=== PATIENT | male | born 1940 | race Caucasian/White ===

== ENCOUNTER → 2017-12-15 08:32 | Outpatient (POV) | payer MEDICARE, SELFPAY | PROVIDERS: Visit Provider Physician Assistant | DX: Z00.00 Encounter for general adult medical examination without abnormal findings (principal) ==

== ENCOUNTER → 2018-08-14 08:33 | Outpatient (CLI) | payer MEDICARE, SELFPAY ==
--- NOTE | 2018-08-14 08:41 | XR_ITS ---
XR shoulder RT min 2V, XR shoulder LT min 2V Ordering Physician: Doreen Paris MD Patient Age: 77 years: Male HISTORY: ITS.REASON: ap, scapular-y auxillary views TECHNIQUE: Right shoulder: 3 views: transaxillary view, Y view, AP internal rotation. Left shoulder:3 views transaxillary view, Y view, AP internal rotation. : COMPARISON Right shoulder from 01/09/2016 used as comparison for the right shoulder. Left shoulder uses a chest film from February 2017. ===== RIGHT SHOULDER 3 VIEWS Prominent Arthritic changes throughout the right shoulder. Narrowing at the glenohumeral joint with marginal osteophytes about the humeral head and to lesser degree glenoid from such. There is some dystrophic calcification along the region of the biceps tendon and greater tuberosity. The additional calcification here. Hypertrophic changes along with possibly some calcific tendinitis and soft tissue calcification. Significant superior migration of the humeral head such that it appears to articulate with the inferior acromion.- This reflects underlying rotator cuff tear & rotator cuff demise. Generous AC joint arthropathy and hypertrophy also noted. These features were seen before but have shown slight progression since 2016 Right clavicle is intact. Upper right ribs unremarkable. [place] right lung clear. IMPRESSION. Advanced arthritic changes right shoulder with rotator cuff tear. ===== LEFT SHOULDER 3 views Prominent arthritic changes at the left shoulder also evident. Narrowing and arthritic changes at the glenohumeral joint with hypertrophic ridging about the posterior margin of the glenoid as well as about the base of the humeral head. There is superior migration of the humeral head reflecting underlying rotator cuff tear. The humeral head articulates with the inferior acromion. There is fragmentation of the acromion and some dystrophic soft tissue calcification and possible calcific tendinitis overlying the humeral head . 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 AC joint arthropathy. Left upper lung and ribs stable with apical pleural thickening unchanged. Scapula unremarkable. IMPRESSION Advanced arthritic changes at left shoulder.... With rotator cuff tear.
== END ==
PROVIDERS: PCP Family Medicine; Visit Provider Orthopaedic Surgery
DX: M25.511 Pain in right shoulder (principal); M25.512 Pain in left shoulder
CPT/HCPCS: 73030

== ENCOUNTER → 2019-12-20 11:01 | Outpatient (CLI) | payer MEDICARE, SELFPAY ==
[2019-12-20 13:11] LABS: Coronavirus 19 IgG Antibody Negative (Negative); Coronavirus 19 IgM Antibody Negative (Negative)
== END ==
PROVIDERS: Visit Provider Ophthalmology
DX: Z03.818 Encounter for observation for suspected exposure to other biological agents ruled out (principal)
CPT/HCPCS: 36415; 86328

== ENCOUNTER 2019-12-21 06:30 | Day surgery (SDC) | payer MEDICARE, SELFPAY ==
[2019-12-16 13:38] VITALS: BMI 23.6
[2019-12-21] VITALS (7 sets, daily range): BP systolic 122–175; BP diastolic 71–83; PULSE 58–65; RESP 18–20; TEMP 36.4; O2SAT 92–100
== END 2019-12-21 08:28 | disposition home or self-care (01) ==
LOC: OR 06:32
PROVIDERS: PCP Family Medicine; Visit Provider Ophthalmology
DX: H25.813 Combined forms of age-related cataract, bilateral (principal); H53.8 Other visual disturbances; H53.149 Visual discomfort, unspecified; Z79.82 Long term (current) use of aspirin; Z79.899 Other long term (current) drug therapy; Z96.652 Presence of left artificial knee joint
CPT/HCPCS: 66984; V2632

== ENCOUNTER → 2020-01-03 10:48 | Outpatient (CLI) | payer MEDICARE, SELFPAY ==
[2020-01-03 12:12] LABS: Coronavirus 19 IgG Antibody Negative (Negative); Coronavirus 19 IgM Antibody Negative (Negative)
== END ==
PROVIDERS: Visit Provider Ophthalmology
DX: Z01.818 Encounter for other preprocedural examination (principal)
CPT/HCPCS: 36415; 86328

== ENCOUNTER 2020-01-04 07:26 | Day surgery (SDC) | payer MEDICARE, SELFPAY ==
[2019-12-29 11:07] VITALS: BMI 23.6
[2020-01-04 08:00] VITALS: BP 182/87; PULSE 74; RESP 18; TEMP 36.3; O2SAT 95
[2020-01-04 08:55] VITALS: BP 166/99; PULSE 72; RESP 18; O2SAT 100
[2020-01-04 09:00] VITALS: BP 160/82; PULSE 71; RESP 18; O2SAT 100
[2020-01-04 09:05] VITALS: BP 156/79; PULSE 66; RESP 16; O2SAT 100
[2020-01-04 09:10] VITALS: BP 155/89; PULSE 64; RESP 16; O2SAT 100
[2020-01-04 09:15] VITALS: BP 156/97; PULSE 65; RESP 18; TEMP 36.6; O2SAT 95
== END 2020-01-04 09:36 | disposition home or self-care (01) ==
LOC: OR 07:27
PROVIDERS: PCP Family Medicine; Visit Provider Ophthalmology
PROC: (CPT 66984; principal; 2020-01-04 09:00)
DX: H25.813 Combined forms of age-related cataract, bilateral (principal); H53.149 Visual discomfort, unspecified; M19.90 Unspecified osteoarthritis, unspecified site; Z85.46 Personal history of malignant neoplasm of prostate; Z96.652 Presence of left artificial knee joint; Z79.82 Long term (current) use of aspirin; Z79.899 Other long term (current) drug therapy
CPT/HCPCS: 66984; V2632

== ENCOUNTER → 2020-03-30 08:35 | Outpatient (CLI) | payer MEDICARE, SELFPAY ==
--- NOTE | 2020-03-30 08:45 | XR_ITS ---
PROCEDURE: XR FOOT WT BEARING LT 3V CLINICAL INDICATION: pain COMPARISON: CR FTL3 FOOT-LT-3 VIEWS from 09/14/2013 FINDINGS: Hallux valgus with osteoarthritis of the 1st MTP joint and bunion formation at the distal aspect of the 1st metatarsal. There is mild lateral translation of the proximal phalanx of approximately 4 mm. There osteoarthritic changes of the midfoot. Severe vascular calcifications are present. Other findings:No acute fracture or dislocation. IMPRESSION: Hallux valgus with osteoarthritis of the 1st MTP joint and bunion formation at the distal aspect of the 1st metatarsal.. Mild osteoarthritis with vascular calcification Dictated by: Maynor Singh MD 03/30/2020 17:41 Maynor Singh MD in [place] 03/30/2020 17:41
--- NOTE | 2020-03-30 08:45 | XR_ITS ---
PROCEDURE: XR FOOT WT BEARING RT 3V CLINICAL INDICATION: pain COMPARISON: CR FTL3 FOOT-LT-3 VIEWS from 09/14/2013 FINDINGS: Hallux valgus with osteoarthritis of the 1st MTP joint and bunion formation at the distal aspect of the 1st metatarsal. Prominent bony hypertrophy is present at the distal aspect of the 1st metatarsal. The hallux sesamoid is displaced laterally. Osteoarthritic changes are present at the talonavicular and navicular cuneiform and tarsal metatarsal junction with mild pes planus. There is significant vascular calcification. Other findings:None. IMPRESSION: Hallux valgus with osteoarthritis of the 1st MTP joint and bunion formation at the distal aspect of the 1st metatarsal with osteoarthritic changes and pes planus. Dictated by: Maynor Singh MD 03/30/2020 17:39 Maynor Singh MD in [place] 03/30/2020 17:39
== END ==
PROVIDERS: PCP Family Medicine; Visit Provider Podiatrist
DX: M79.673 Pain in unspecified foot (principal)
CPT/HCPCS: 73630

== ENCOUNTER → 2020-03-30 10:32 | Outpatient (CLI) | payer MEDICARE, SELFPAY ==
[2020-03-30 11:50] LABS: Basophils % 0.2 % (0.1-2.0); Eosinophils # 0.1 K/mm3 (0.0-0.4); Eosinophils % 1.3 % (0.1-12.0); Hematocrit 46.5 % (42.0-52.0); Hemoglobin 14.8 g/dL (14.1-18.0); Lymphocytes # 1.3 K/mm3 (0.7-4.5); Lymphocytes % 13.6 % (10-50); Mean Corpuscular HGB Conc 31.9 g/dL (31.8-35.4); Mean Corpuscular Hemoglobin 33.6 pg (27.0-31.2); Mean Corpuscular Volume 105.3 fl (80-94); Mean Platelet Volume 7.5 fl (7.4-10.4); Monocytes # 0.6 K/mm3 (0.1-1.0); Monocytes % 6.5 % (1.7-9.3); Neutrophils # 7.4 K/mm3 (1.8-7.8); Neutrophils % 78.3 % (37.0-80.0); Platelet Count 218 K/mm3 (142-424); Red Blood Count 4.41 M/mm3 (4.60-6.20); Red Cell Distribution Width 14.4 % (11.5-17.5); White Blood Count 9.4 K/mm3 (4.8-10.8)
[2020-03-30 11:56] LABS: Chloride 102 mmol/L (98-107); Potassium 4.2 mmoL/L (3.5-5.1); Sodium 136 mmol/L (136-145)
[2020-03-30 11:59] LABS: Alanine Aminotransferase 24 U/L (12-78); Albumin Level 3.9 g/dl (3.5-5.0); Albumin/Globulin Ratio 1.7 (1.1-1.8); Alkaline Phosphatase 71 U/L (38-126); Anion Gap 8.2 mEq/L (5-15); Aspartate Amino Transferase 25 U/L (17-59); Bilirubin,Total 0.8 mg/dl (0.2-1.3); Blood Urea Nitrogen 28 mg/dl (9-20); Carbon Dioxide 30 mmol/L (22.0-30.0); Estimated Glomerular Filt Rate 82 ml/min (>60); GFR (African American) 99 ML/MIN (>60); Globulin 2.3 g/dL (1.3-3.2); Total Protein,Serum 6.2 g/dl (6.3-8.2)
[2020-03-30 12:00] LABS: Calcium 9.1 mg/dl (8.4-10.2); Glucose 78 mg/dl (74-100)
[2020-03-30 12:05] LABS: C-Reactive Protein 2.1 mg/L (0-4)
[2020-03-30 12:43] LABS: Erythrocyte Sedimentation Rate 16 mm/hr (0-20)
== END ==
PROVIDERS: Visit Provider Podiatrist
DX: I73.9 Peripheral vascular disease, unspecified (principal); L03.031 Cellulitis of right toe; L97.519 Non-pressure chronic ulcer of other part of right foot with unspecified severity; M79.673 Pain in unspecified foot; S91.109A Unspecified open wound of unspecified toe(s) without damage to nail, initial encounter; L97.509 Non-pressure chronic ulcer of other part of unspecified foot with unspecified severity
CPT/HCPCS: 36415; 73630; 80053; 85025; 85651; 86140; 87070; 87077; 87186; 87205

== ENCOUNTER → 2020-03-31 10:51 | Outpatient (CLI) | payer MEDICARE, SELFPAY ==
--- NOTE | 2020-03-31 10:51 | US_ITS ---
APPROVED REPORT Exam Type: Lower Extremity Segmental Pressures Mainframe Applications Developer: Debra Muro RVT Indications Claudication: Bilaterally Non-healing Ulcer: Right History of Smoking DECREASED PULSES, NON-HEALING WOUND RT 2ND TOE Risk Factors CAD Cardiac Disease History of Smoking Pressures/Indices Right Indices Left Indices Brachial 157.00 mmHg Brachial 162.00 mmHg Low Thigh 199.00 mmHg 1.23 Low Thigh 255.00 mmHg 0.00 Calf 255.00 mmHg 0.00 Calf 255.00 mmHg 0.00 Ankle(PT) 255.00 mmHg 0.00 Ankle(PT) 255.00 mmHg 0.00 Ankle(DP) 255.00 mmHg 0.00 Ankle(DP) 255.00 mmHg 0.00 Digit 95.00 mmHg 0.59 Digit 135.00 mmHg 0.83 Findings RT DARRIUS:NON-COMPRESSIBLE LT DARRIUS:NON-COMPRESSIBLE RT TBI:0.59 LT TBI:0.83 DAMPENED WAVEFORMS BILATERAL ANKLE DECREASED PULSES BILATERAL Conclusion RT DARRIUS:NON-COMPRESSIBLE LT DARRIUS:NON-COMPRESSIBLE RT TBI:0.59 LT TBI:0.83 DAMPENED WAVEFORMS BILATERAL ANKLE DECREASED PULSES BILATERAL Moderate right and mild left arterial disease Electronically signed by : Maynor Singh MD 03/31/2020 17:37:29
== END ==
PROVIDERS: PCP Family Medicine; Visit Provider Podiatrist
DX: R09.89 Other specified symptoms and signs involving the circulatory and respiratory systems (principal)
CPT/HCPCS: 93923

== ENCOUNTER 2020-04-05 14:45 | Outpatient (RCR) | payer MEDICARE, SELFPAY | END 2020-04-05 14:50 | disposition home or self-care (01) | LOC: PT 14:45 | PROVIDERS: PCP Family Medicine; Visit Provider Podiatrist | DX: L97.511 Non-pressure chronic ulcer of other part of right foot limited to breakdown of skin (principal) | CPT/HCPCS: 97161; 97597 ==

== ENCOUNTER → 2020-04-13 08:27 | Outpatient (CLI) | payer MEDICARE, SELFPAY ==
[2020-04-13 11:10] LABS: Coronavirus 19 IgG Antibody Negative (Negative); Coronavirus 19 IgM Antibody Negative (Negative)
== END ==
PROVIDERS: Visit Provider Internal Medicine Gastroenterology
DX: Z51.89 Encounter for other specified aftercare (principal); Z01.818 Encounter for other preprocedural examination; Z03.818 Encounter for observation for suspected exposure to other biological agents ruled out; Z12.11 Encounter for screening for malignant neoplasm of colon; L97.513 Non-pressure chronic ulcer of other part of right foot with necrosis of muscle
CPT/HCPCS: 86328; 87070; 87205

== ENCOUNTER 2020-04-14 07:34 | Day surgery (SDC) | payer MEDICARE, SELFPAY ==
[2020-04-11 09:52] VITALS: BMI 24.3
[2020-04-14] VITALS (7 sets, daily range): BP systolic 91–177; BP diastolic 58–97; PULSE 73–85; RESP 16–18; TEMP 36.4–36.6; O2SAT 16–100
--- NOTE | 2020-04-14 08:34 | HMH.PROC ---
[facility] Procedure Note Procedure Note:: Colonoscopy Procedure Report: Colonoscopy with cold snare polypectomy and APC ablation Endoscopist: Fidencio Flores II, MD Referring physician: Priti Leone M.D. Date of Procedure: April 14, 2020 Equipment: Olympus 180 variable stiffness pediatric colonoscope Sedation: MAC sedation Indication: Mr. Hernandez is a 79-year-old gentleman who is here for diagnostic colonoscopy secondary to rectal bleeding. This does occur frequently with blood in the toilet tissue and he did have one episode where blood filled the commode. This does occur more frequently when he is straining or has a little constipation. He reports no abdominal pain or rectal pain. He reports no change in bowel habits, weight loss or family history of colon cancer. His last colonoscopy 5 to 7 years ago revealed a couple of polyps which were removed. The patient did have prior prostate cancer treated with radiation therapy. Procedure: Prior to the procedure, a history and physical exam was performed, and patient's medications and allergies were reviewed. The risks, benefits and alternatives of the sedation and procedure were discussed with the patient. All questions were answered and informed consent was obtained. The patient was brought to the procedure room. Patient identification and proposed procedure were verified by the physician and the nurse. The patient was placed in a left lateral decubitus position and the scope was passed under direct vision. Throughout the procedure, the patient's blood pressure, pulse, and oxygen saturations were monitored continuously. The colonoscopy was accomplished without difficulty. The patient tolerated the procedure well. Findings: On digital rectal examination there was normal rectal tone. There were no external hemorrhoids. The colonoscope was introduced through the anal canal to the rectum and advanced to the cecum. The ileocecal valve and appendiceal orifice were identified. The scope was advanced a short distance into the ileum which appeared grossly normal. The scope was then withdrawn into the colon. The cecum and ascending colon were normal. There was a diminutive 3 to 4 mm polyp in the transverse colon removed via cold snare polypectomy. There were scattered diverticuli throughout the descending and sigmoid colon (LEFT colon). Within the distal rectum was telangiectasias/AVMs and evidence of radiation proctitis. This was deemed to be the cause of his rectal bleeding. The telangiectasias did encompass catheter circumference just proximal to the pectinate line. This area was ablated/coagulated using the APC (argon plasma hide stretcher hand). Upon retroflexion within the rectum there were also grade 1-2 internal hemorrhoids. The preparation was excellent throughout with [place] Preparation Score of 9. The cecal time was 12 minutes. Impression: 1. 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 Diminutive transverse colon polyp 3. Left-sided diverticulosis 4. Grade 1-2 internal hemorrhoids Plan: The patient's rectal bleeding is from the telangiectasias created by radiation therapy and he does have chronic radiation proctitis. The patient is not suffering from tenesmus or rectal pain. The treatment of choice for hemorrhoidal bleeding of radiation proctitis remains APC ablation. Sometimes mesalamine suppositories can be useful if this persists. Also, fibrosis created by band ligation can sometimes help. Antioxidants (vitamin E) have been utilized.
--- NOTE | 2020-04-14 08:57 | P.PN_ITS ---
[facility] Anesthesia Checklist - Patient Identification Patient Identification: Arm Band, Verbal (Name & ) - Structural Data Admitted From: Home Planned Operative Procedure/s: Colonoscopy Consent for Planned Operative Procedure(s) Verified: Yes Verified Documents: Surgical Consent, History and Physical - NPO Status Verified Time NPO: 00:00 - Chart Verification Results Verified: None - Additional verifications Anesthesia Reactions: No - Airway Assessment C-Spine Mobility Assessed: Yes TMJ Mobility Assessed: Yes Dentition: Edentulous - Neurological Assessment Level of Consciousness: Awake, Alert, Appropriate, Follows Commands Hx Seizures: No Numbness or tingling in extremities: No - Anesthesia Plan Anesthesia Risk discussed: Yes Anesthesia Plan: Verified ASA Class: III Anesthesia Type: MAC [facility] History I have reviewed the patient's past medical history: Yes Medical History: Reports:: Cancer, Coronary Artery Disease, Peripheral Artery Disease Denies:: Diabetes Mellitus Type 1, Diabetes Mellitus Type 2, Internal Pacemaker, MRSA, Seizures *Have you ever received a pneumonia vaccine?: Yes *Have you received a flu vaccine this season?: Yes Other Medical History: Reports: Arthritis, Other Anesthesia experience/problems:: None Laterality Cases: Left: Total Knee Replacement Other Surgeries: Yes: Appendectomy, CABG, Cancer Surgery, Hernia Repair, Other (open heart in 2002). No: Pacemaker Amputation: No Fractures: No - *Social History Last grade of school completed: 9th or 10th Smoking Status: Current every day smoker Tobacco Type: smokeless tobacco # Packs/Day (cigarettes): 1 Alcohol Intake: current Alcohol Intake Frequency:: a few times a week Substance Use Type: denies use *Occupational Status:: retired Housing: house *Travel in the last 8 weeks: None Family Hx:: Diabetes
== END 2020-04-14 09:51 | disposition home or self-care (01) ==
LOC: OUTP 07:35
PROVIDERS: PCP Family Medicine; Visit Provider Internal Medicine Gastroenterology
PROC: 0DJD8ZZ Inspection of Lower Intestinal Tract, Via Natural or Artificial Opening Endoscopic (ICD-10-PCS; CPT 45378; principal; 2020-04-14 08:30)
DX: K62.89 Other specified diseases of anus and rectum (principal); K62.7 Radiation proctitis; K64.0 First degree hemorrhoids; K57.30 Diverticulosis of large intestine without perforation or abscess without bleeding; K63.5 Polyp of colon; Z86.010 Personal history of colon polyps; Z85.46 Personal history of malignant neoplasm of prostate; I25.10 Atherosclerotic heart disease of native coronary artery without angina pectoris; I73.9 Peripheral vascular disease, unspecified; M19.90 Unspecified osteoarthritis, unspecified site; Z95.1 Presence of aortocoronary bypass graft; Z72.0 Tobacco use
CPT/HCPCS: 45385; 45388; 88305; C2618

== ENCOUNTER → 2020-04-15 10:22 | Outpatient (CLI) | payer MEDICARE, SELFPAY ==
[2020-04-15 11:12] LABS: Basophils % 0.1 % (0.1-2.0); Eosinophils % 0.1 % (0.1-12.0); Hematocrit 48.8 % (42.0-52.0); Lymphocytes # 0.9 K/mm3 (0.7-4.5); Lymphocytes % 7.9 % (10-50); Mean Corpuscular HGB Conc 32.8 g/dL (31.8-35.4); Mean Corpuscular Hemoglobin 34.5 pg (27.0-31.2); Mean Corpuscular Volume 105.1 fl (80-94); Mean Platelet Volume 7.7 fl (7.4-10.4); Monocytes # 0.8 K/mm3 (0.1-1.0); Monocytes % 7.3 % (1.7-9.3); Neutrophils # 9.8 K/mm3 (1.8-7.8); Neutrophils % 84.6 % (37.0-80.0); Platelet Count 205 K/mm3 (142-424); Red Blood Count 4.65 M/mm3 (4.60-6.20); Red Cell Distribution Width 14.7 % (11.5-17.5); White Blood Count 11.5 K/mm3 (4.8-10.8)
[2020-04-15 12:29] LABS: Chloride 99 mmol/L (98-107); Potassium 4.7 mmoL/L (3.5-5.1); Sodium 137 mmol/L (136-145)
[2020-04-15 12:32] LABS: Anion Gap 12.7 mEq/L (5-15); Blood Urea Nitrogen 42 mg/dl (9-20); Calcium 9.7 mg/dl (8.4-10.2); Carbon Dioxide 30 mmol/L (22.0-30.0); Estimated Glomerular Filt Rate 82 ml/min (>60); GFR (African American) 99 ML/MIN (>60); Glucose 92 mg/dl (74-100)
[2020-04-15 13:00] LABS: Coronavirus 19 IgG Antibody Negative (Negative); Coronavirus 19 IgM Antibody Negative (Negative)
== END ==
PROVIDERS: Visit Provider Internal Medicine
DX: Z01.818 Encounter for other preprocedural examination (principal); Z03.818 Encounter for observation for suspected exposure to other biological agents ruled out; I25.10 Atherosclerotic heart disease of native coronary artery without angina pectoris; I48.91 Unspecified atrial fibrillation
CPT/HCPCS: 36415; 80048; 85025; 86328

== ENCOUNTER 2020-04-17 08:05 | Day surgery (SDC) | payer MEDICARE, SELFPAY ==
[2020-04-17] VITALS (13 sets, daily range): BP systolic 133–172; BP diastolic 68–93; PULSE 48–68; RESP 12–18; TEMP 36.5; O2SAT 91–99; BMI 24.3
--- NOTE | 2020-04-17 07:36 | IR_ITS ---
APPROVED REPORT Patient Location: Outpatient [facility] Operator: ISA Calderon RT (R) PROCEDURES Right radial arterial access Catheter placement in the left common iliac artery Left common iliac artery antegrade angiogram with unilateral runoff to the left foot Catheter placement in the right external iliac artery Right external iliac artery antegrade angiogram with unilateral runoff to the right foot Catheter placed in the distal abdominal aorta Distal abdominal aortography with iliofemoral angiography INDICATION Jeane class V claudication, Abnormal DARRIUS 0.50.8, Peripheral artery disease Informed consent was obtained prior to the procedure. COMPLICATIONS NONE Estimated Blood Loss: LESS THAN 10 ML TECHNIQUE 1% lidocaine used to anesthetize the right anterior aspect of the right wrist. The right radial artery was accessed via the central technique and an arterial cocktail using 5000U heparin, 2.5 mg verapamil, 1mg lidocaine and 800mcg nitroglycerin into the right radial sheath intra-arterially. A PV multi curve catheter was then placed into the left common iliac artery via the right radial sheath and iliofemoral angiography was performed with unilateral runoff to the foot. The catheter was then pulled back and placed under fluoroscopic guidance into the right external iliac artery where unilateral runoff was performed. Following this the catheter was pulled back to the abdominal aorta and abdominal aortography with bilateral iliofemoral angiography was performed. At the end of the procedure the apparatus was removed the sheath was removed good hemostasis was achieved using TR banding patient was transferred to the postop holding area in stable condition. ANGIOGRAPHIC RESULTS Distal abdominal aorta has external calcification with no intraluminal stenosis The bilateral common internal and external iliac arteries are normal The bilateral common femoral arteries are normal The bilateral superficial femoral arteries are normal The bilateral profunda femoris arteries are normal There is extremely slow flow down both legs consistent with severe distal microscopic vasculopathy. The right popliteal artery is normal. The right anterior tibialis artery posterior tibialis artery and peroneal artery are both patent in the proximal and mid segment. Distally there is poor opacification with poor distal blanching from the small blood vessels The left popliteal artery is normal. There is opacification of the posterior tibialis artery and peroneal artery. The anterior tibialis artery is poorly opacified. There is extremely slow flow down the entire leg from the common iliac arteries bilaterally into the lower extremities. There is poor blanching of the small vessel vascularity IMPRESSION No evidence of macrovascular disease Angiographic evidence of microscopic diffuse vasculopathy accompanied by severely slow flow down the entire leg bilaterally Angiographic evidence of severe endothelial dysfunction PLAN 1. Xarelto 2.5 twice daily plus aspirin 81 mg daily 2. Recommend long-acting nitrates 3. LDL less than 55 4. Aggressive physical therapy to improve with claudication Electronically signed by : William Quinones, 04/17/2020 11:55:53
--- NOTE | 2020-04-17 08:11 | CA_ITS ---
APPROVED REPORT EXAM: Comprehensive 2D, Doppler, and color-flow Echocardiogram Cement Paver: Lizy Mccoy, RT(R) Ht: 5 ft 9 in Wt: 155lbs BSA: 1.85 BP: 139/81 mmHg Indications: afib, claudication, CABG, CAD, SOB 2D Dimensions LVOT 2.29 cm (M/F) 1.5-2.5 M-Mode Dimensions RVDd 2.21 cm (0.9-2.6) LA Diam 4.48 cm (1.9-4.0) LVDd 5.18 cm (3.5-5.7) Ao Diam 3.67 cm (2.0-3.7) LVDs 3.74 cm (3.5-5.7) IVSd 0.84 cm (0.6-1.1) PWd 0.84 cm (0.6-1.1) EF (Teich) 53.60% FS 27.80% EDV (Teich) 128.40 mL ESV (Teich) 59.60 mL Aortic Valve LVOT Max 52.00 (70-110 cm/s) LVOT VTI 11.39 cm AoV Peak Robert. 97.00 (50-130 cm/s) AO Peak GR. 3.80 mmHg AO Mean GR. 2.10 (<5 mmHg) AO VTI 20.31 (18-25 cm) PIEDAD (VTI) 2.31 (2.5-4.5 cm2) Left Ventricle Left atrium is mildly enlarged, left ventricle is normal size, mild concentric left ventricular hypertrophy, visually estimated ejection fraction 50% with no regional wall motion abnormality, endocardial surfaces are poorly visualized, diastolic parameters are inconclusive. Right Ventricle Right atrium and right ventricle are mildly enlarged with normal contractility. Aortic Valve Aortic valve is thickened and calcified leaflet chordae display good mobility, there is no aortic stenosis or aortic insufficiency. Mitral Valve Mitral valve is grossly normal, there is mild mitral regurgitation. Tricuspid Valve Tricuspid valve grossly normal, there is trace tricuspid regurgitation. Tricuspid regurgitation jet velocity is inadequate for calculation of the right ventricular systolic pressure. Pulmonic Valve Pulmonic valve is poorly visualized. Great Vessels Aortic root is normal size. Pericardium No significant pericardial effusion noted. Conclusion 1. Technically difficult study, endocardial surfaces are poorly visualized. Normal left ventricular size, visually estimated ejection fraction 55% with no regional wall motion abnormality. 2. Mild mitral and trace tricuspid regurgitation. 3. No significant pericardial effusion noted. 4. Thickened and calcified aortic valve without aortic stenosis or significant aortic insufficiency. Electronically signed by : Judd Mason, 04/18/2020 06:01:01
== END 2020-04-17 14:39 | disposition home or self-care (01) ==
LOC: CATHLAB 08:07
PROVIDERS: PCP Family Medicine; Visit Provider Internal Medicine
DX: I70.212 Atherosclerosis of native arteries of extremities with intermittent claudication, left leg (principal); I70.235 Atherosclerosis of native arteries of right leg with ulceration of other part of foot; L97.511 Non-pressure chronic ulcer of other part of right foot limited to breakdown of skin; I48.20 Chronic atrial fibrillation, unspecified; E78.5 Hyperlipidemia, unspecified; Z72.0 Tobacco use; I25.10 Atherosclerotic heart disease of native coronary artery without angina pectoris; Z79.01 Long term (current) use of anticoagulants; Z79.82 Long term (current) use of aspirin; Z79.899 Other long term (current) drug therapy
CPT/HCPCS: 36247; 75625; 75716; 93306; 99152; 99153; C1725; C1769; J1644; Q9966

== ENCOUNTER → 2020-05-02 12:05 | Outpatient (CLI) | payer MEDICARE, SELFPAY ==
--- NOTE | 2020-05-02 12:12 | XR_ITS ---
PROCEDURE: XR CHEST 2V CLINICAL HISTORY: HX OF HIGH BLOOD PRESSURE COMPARISON: CR CXR CHEST(2 VIEWS-NOT PORTABLE) from 03/18/2017 FINDINGS: There is mild cardiomegaly without failure. Patient has had a prior CABG. The lungs are clear without infiltrates, suspicious nodules, or pleural effusions. There are degenerative changes in both shoulders with severe subacromial stenosis. IMPRESSION: Cardiomegaly, prior CABG Dictated by: Maynor Singh MD 05/02/2020 17:23 Maynor Singh MD in [place] 05/02/2020 17:23
== END ==
PROVIDERS: PCP Family Medicine; Visit Provider Family Medicine
DX: Z00.00 Encounter for general adult medical examination without abnormal findings (principal); I10 Essential (primary) hypertension
CPT/HCPCS: 71046

== ENCOUNTER → 2020-05-03 13:27 | Outpatient (CLI) | payer MEDICARE, SELFPAY ==
[2020-05-03 14:17] LABS: Basophils % 0.5 % (0.1-2.0); Eosinophils # 0.1 K/mm3 (0.0-0.4); Eosinophils % 1.4 % (0.1-12.0); Hematocrit 48.9 % (42.0-52.0); Hemoglobin 16.3 g/dL (14.1-18.0); Lymphocytes # 1.5 K/mm3 (0.7-4.5); Lymphocytes % 24.1 % (10-50); Mean Corpuscular HGB Conc 33.2 g/dL (31.8-35.4); Mean Corpuscular Hemoglobin 34.5 pg (27.0-31.2); Mean Corpuscular Volume 103.7 fl (80-94); Mean Platelet Volume 7.9 fl (7.4-10.4); Monocytes # 0.4 K/mm3 (0.1-1.0); Monocytes % 5.6 % (1.7-9.3); Neutrophils # 4.4 K/mm3 (1.8-7.8); Neutrophils % 68.5 % (37.0-80.0); Platelet Count 197 K/mm3 (142-424); Red Blood Count 4.72 M/mm3 (4.60-6.20); Red Cell Distribution Width 14.4 % (11.5-17.5); White Blood Count 6.4 K/mm3 (4.8-10.8)
[2020-05-03 15:09] LABS: Blood Urea Nitrogen 32 mg/dl (9-20); Carbon Dioxide 33 mmol/L (22.0-30.0); Chloride 101 mmol/L (98-107); Estimated Glomerular Filt Rate 65 ml/min (>60); GFR (African American) 79 ML/MIN (>60); Glucose 87 mg/dl (74-100); Sodium 140 mmol/L (136-145)
[2020-05-03 15:13] LABS: Coronavirus 19 IgG Antibody Negative (Negative); Coronavirus 19 IgM Antibody Negative (Negative)
[2020-05-03 15:15] LABS: C-Reactive Protein 2.3 mg/L (0-4); Erythrocyte Sedimentation Rate 16 mm/hr (0-20)
== END ==
PROVIDERS: Visit Provider Podiatrist
DX: Z01.818 Encounter for other preprocedural examination (principal); Z03.818 Encounter for observation for suspected exposure to other biological agents ruled out; L97.513 Non-pressure chronic ulcer of other part of right foot with necrosis of muscle
CPT/HCPCS: 36415; 80048; 85025; 85651; 86140; 86328

== ENCOUNTER 2020-05-05 10:15 | Day surgery (SDC) | payer MEDICARE, SELFPAY ==
[2020-05-03 09:14] VITALS: BMI 23.6
[2020-05-05] VITALS (11 sets, daily range): BP systolic 93–156; BP diastolic 59–90; PULSE 65–82; RESP 18; TEMP 36.4–36.6; O2SAT 94–97
--- NOTE | 2020-05-05 13:16 | HMH.OPNOTE ---
Date of procedure: 05/05/20 Pre-op Diagnosis:: Right 2nd toe ulcer Right 2nd toe infection Post-op Diagnosis:: Same Procedure performed:: Right 2nd toe (partial) amputation Surgeon:: Pallavi Hernandez DPM Anesthesia: GETA, local (20cc 0.5% marcaine plain) Estimated blood loss (mL): 5 Clinical Note:: Patient is a 79-year-old male with a right second toe ulceration secondary to elongated toenail puncturing the skin which resulted with infection. We discussed conservative versus surgical treatment options. Conservative treatment options include local wound care, oral and IV antibiotics, change in shoe wear, taping/padding, and off-loading. Discussed that patient would benefit from a wider and deeper shoe wear to accommodate the deformity. We discussed surgical intervention for amputation of the right 2nd toe. We discussed recurrence of callus and ulcer due to the elongated second toe and potential underlying bone infection. Patient understands that there is a chance that the toes can migrate to fill the gap or the foot may change shape after surgery. Patient also understands that they could have wound healing complications including delayed healing and infection. We discussed that if the wound does not heal, it is possible that they may need a more proximal amputation and could result in further loss of digits, loss of partial foot or loss of leg. We discussed the risks and benefits in great detail. Other surgical risks include: prolonged pain and swelling, further infection requiring oral or IV antibiotics, delay in healing of soft tissue or bone, nerve or blood vessel damage, CRPS/RSD, DVT, anesthesia complications, and even . All questions answered. Patient verbalized understanding. Consent obtained. PCP-Dr. Leone granted medical clearance. Pre-op labs: ESR, CRP, CBC, CMP, EKG, CXR, covid. Operative findings:: The right second toe had a distal callus measuring less than 0.5 x 0.5 x 0.4 cm that probe to bone. Minimal edema and erythema noted. The distal phalanx bone was soft and crumbly. Operative note:: On this date and time patient was deemed an appropriate surgical candidate. With informed consent signed, the patient was taken to the operating theater. The patient was positioned supine. LMA anesthesia was induced. No tourniquet used. Pre-op right second toe block given with 10 cc 0.5% marcaine plain. Right 2nd digit (partial) amputation: The right lower extremity was prepped and drapped in normal sterile fashion. A fish mouth incision was mapped out around the DIPJ. Utilizing a 15 blade dissection was carried down sharply to the level of the bone around the distal phalanx which was disarticulated from the medial phalanx. The distal phalanx bone was soft and crumbly and had a no malodor to it. Portion of it was cut and sent for bone culture and the other part was sent for bone biopsy for pathology. Attention was then directed to the middle phalanx. The head was hard and intact, with no obvious discoloration or cortical erosions noted. Next bacitracin irrigation was used to flush the wound. The wound was reexplored and no further signs of infection noted. Bleeding controlled. No vessels ligated with electrocautery or tied as there was minimal to no blood loss. 3-0 Prolene was used to close skin in an interrupted simple suture fashion. 10cc 0.5% marcaine plain given at end of case. The wounds were cleansed. Xeroform, dry sterile dressing was then applied to the foot. The patient was awoken from anesthesia and transferred to recovery with vital signs stable and neurovascular status intact. Materials: 3-0 Prolene Discharge/Plan: Patient is to maintain dressing clean dry and intact. Partial weight bearing to the right lower extremity in short fracture boot with walker. Completed oral antibiotics. IV Invanz given today. Hold on more antibiotics until cultures and path result. Obtain post op films, right foot, 3 views. Follow up in one week for dressing
--- NOTE | 2020-05-05 13:19 | P.PN_ITS ---
[facility] Anesthesia Checklist - Patient Identification Patient Identification: Arm Band, Verbal (Name & ) - Structural Data Admitted From: Home Planned Operative Procedure/s: toe amp Consent for Planned Operative Procedure(s) Verified: Yes Verified Documents: History and Physical - NPO Status Verified Time NPO: 00:00 - Chart Verification Results Verified: CBC, BMP - Additional verifications Patient : No Anesthesia Reactions: No Hx Blood Transfusions: No Blood Transfusion Reaction: No Cephalosporin Allergy: No Previous Colonoscopy: No - Cardiovascular Assessment Heart Sounds: S1 & S2 Pulse Strength: Baseline Pulse Rhythm: Irregular Peripheral Edema: No - Airway Assessment C-Spine Mobility Assessed: Yes TMJ Mobility Assessed: Yes Dentition: Edentulous - Neurological Assessment Level of Consciousness: Awake, Alert, Appropriate Hx Seizures: No Numbness or tingling in extremities: No - Anesthesia Plan Anesthesia Risk discussed: Yes Anesthesia Plan: Verified ASA Class: III Anesthesia Type: MAC [facility] History I have reviewed the patient's past medical history: Yes Medical History: Reports:: Cancer (PROSTATE), Coronary Artery Disease, Peripheral Artery Disease Denies:: Diabetes Mellitus Type 1, Diabetes Mellitus Type 2, Internal Pacemaker, MRSA, Seizures *Have you ever received a pneumonia vaccine?: Yes *Have you received a flu vaccine this season?: Yes Other Medical History: Reports: Arthritis, Other. Denies: Blood Transfusion Reaction Anesthesia experience/problems:: none Laterality Cases: Bilateral: Total Knee Replacement Other Surgeries: Yes: Angiogram, Appendectomy, CABG, Cancer Surgery, Cardiac Catheterization, Hernia Repair, Other (open heart in 2002). No: Pacemaker Amputation: No Fractures: No - *Social History Last grade of school completed: 9th or 10th Smoking Status: Unknown if ever smoked Tobacco Type: smokeless tobacco # Packs/Day (cigarettes): 1 Alcohol Intake: current Alcohol Intake Frequency:: holidays/special occasions only Substance Use Type: denies use *Occupational Status:: retired Housing: house *Travel in the last 8 weeks: None Family Hx:: Diabetes
--- NOTE | 2020-05-05 13:20 | P.PN_ITS ---
[facility] Anesthesia Record Part I Intake, IV Amount: 400 Estimated blood loss (mL): 0 Urine output (mL): 0 Blood Products used (#): none Blood Pressure: 93/63 SaO2: 97 Pulse Rate: 65 Respiratory Rate: 18 Temperature: 97.5 F Patient is:: Drowsy, Stable Stable to PACU at:: 13:14
--- NOTE | 2020-05-05 13:30 | XR_ITS ---
PROCEDURE: XR FOOT RT MIN 3V CLINICAL INDICATION: Right toe amp Pain COMPARISON: CR FTL3 FOOT-LT-3 VIEWS from 09/14/2013 CR XR FOOT WT BEARING RT 3V from 03/30/2020 CR XR FOOT WT BEARING LT 3V from 03/30/2020 FINDINGS: Hallux valgus with osteoarthritis of the 1st MTP joint and bunion formation at the distal aspect of the 1st metatarsal. The sesamoid to the 1st metatarsal is displaced laterally. Status post amputation at the distal phalanx of the 2nd toe. There is diffuse vascular calcification IMPRESSION: Status post amputation at distal phalanx of the 2nd toe otherwise no acute finding. Dictated by: Maynor Singh MD 05/05/2020 15:56 Maynor Singh MD in [facility] 05/05/2020 15:56
== END 2020-05-05 14:30 | disposition home or self-care (01) ==
LOC: OR 10:17
PROVIDERS: PCP Family Medicine; Visit Provider Podiatrist
PROC: (CPT 28810; principal; 2020-05-05 11:45)
DX: L97.513 Non-pressure chronic ulcer of other part of right foot with necrosis of muscle (principal); I73.9 Peripheral vascular disease, unspecified; F17.200 Nicotine dependence, unspecified, uncomplicated; M21.372 Foot drop, left foot; M19.071 Primary osteoarthritis, right ankle and foot; I48.20 Chronic atrial fibrillation, unspecified; I25.10 Atherosclerotic heart disease of native coronary artery without angina pectoris; E78.49 Other hyperlipidemia; L08.9 Local infection of the skin and subcutaneous tissue, unspecified; Z79.01 Long term (current) use of anticoagulants; Z95.1 Presence of aortocoronary bypass graft; Z96.652 Presence of left artificial knee joint; Z79.82 Long term (current) use of aspirin; Z79.899 Other long term (current) drug therapy
CPT/HCPCS: 28810; 73630; 87070; 87205; 88305; 88311; 96374; J1335; J2405

== ENCOUNTER 2020-06-04 17:48 | Observation (INO) | payer MEDICARE, SELFPAY ==
[2020-06-04] VITALS (8 sets, daily range): BP systolic 105–173; BP diastolic 57–101; PULSE 82–97; RESP 14–18; TEMP 36.4–37.1; O2SAT 90–98; BMI 23.6; BMI 25.8
--- NOTE | 2020-06-04 17:51 | HMH.EDGENADL ---
ED Disposition Clinical Impression: Fecal impaction in rectum Disposition: Admitted As Inpatient Condition on Discharge: Fair Referrals: Maximo Leone MD [Primary Care Provider] - - Critical Care Critical Care Time: No Attestation: On , the high probability of a clinically significant, sudden or life threatening deterioration of the following system(s) required my full and direct attention, intervention and personal management. The time I documented below is in addition to time spent performing reported procedures but includes the following listed in this critical care notation. Medical Decision Making - Medical Records Medical records reviewed: Yes: I reviewed the patient's medical records. - Franco Inquiry Pt receiving controlled substance: No Vital Signs: 06/04/20 17:53 06/04/20 18:50 Temperature 97.5 F L Temperature Source Oral Pulse Rate [Left Radial] 84 85 Respiratory Rate 18 Blood Pressure [Left Arm] 173/101 H 169/98 H Blood Pressure Mean [Left Arm] 125 121 Blood Pressure Source [Left Arm] Automatic Cuff Blood Pressure Position [Left Arm] Sitting 02 Sat by Pulse Oximetry 98 95 Oxygen Delivery Method Room Air - Lab Data Lab Results 06/04/20 19:23: Urine Color Yellow, Urine Appearance Clear, Urine pH 8.0, Ur Specific [place] 1.015, Urine Protein Negative, Urine Glucose (UA) Negative, Urine Ketones Trace, Urine Blood 2+, Urine Nitrate Negative, Urine Bilirubin Negative, Urine Urobilinogen 0.2, Ur Leukocyte Esterase Negative Orders (Tests/Meds): ED MEDICATIONS Generic Name Dose Route Start Last Admin Trade Name Freq PRN Reason Stop Dose Admin Senna/Docusate Sodium 1 tab 06/04/20 19:54 Sennosides 8.6mg/Docusate 50mg Tablet PO 07/04/20 19:53 BIDP PRN Constipation Discontinued Medications Generic Name Dose Route Start Last Admin Trade Name Freq PRN Reason Stop Dose Admin Magnesium Citrate 1 bot 06/04/20 19:55 Magnesium Citrate 10oz Bottle PO 06/04/20 19:56 ONCE ONE Sodium Phosphate 133 ml 06/04/20 19:38 06/04/20 19:39 Fleet 133ml Enema RC 06/04/20 19:39 133 ml ONCE ONE Administration ORDERS Category Date Time Status KUB (single view) [XR KUB] Stat Exams 06/04/20 19:51 Ordered CMP [Comprehensive Metabolic Panel] Stat Lab 06/04/20 19:53 Ordered Complete Blood Count Auto Diff Stat Lab 06/04/20 19:53 Ordered Urinalysis and Microscopic Stat Lab 06/04/20 19:23 Results Medical Decision Narrative: Patient presents to the emergency department with constipation. On examination, patient does have hard stool in a significant quantity located in his rectum. I do believe this could be causing his urination issues as this could compress the urethra. I did manually disimpact patient and soapsuds enema given. Patient now attempting to use bedside commode. Patient will be monitored to ensure relief of stool burden. Also be checked to ensure no difficulty urinating. Patient with very little success having bowel movement. At this time, I do not believe he is necessarily impacted as his stool is soft but again does have increased stool burden. KUB currently pending and basic labs ordered. At this time, catheter placed with 500 to 600 cc of urine. UA sent for analysis. Due to patient's continued struggle to have a bowel movement I do believe it is in his best interest to be placed on a bowel regimen so catheter can be removed and patient can void with ease. I did discuss this with on-call provider Dr. Sutherland and after careful discussion we agree. Patient will be admitted. Patient verbalized understanding and agrees with the plan. Assessment: Fecal impaction Disposition: admission General Adult HPI - General Stated complaint: pain from lower back down Time Seen by Provider: 06/04/20 18:15 - History of Present Illness HPI narrative: Patient 79-year-old male presenting with constipation. Patient states he has not had a bowel mo
--- NOTE | 2020-06-04 17:56 | ECG_ITS ---
APPROVED REPORT Exam: Resting ECG HR:88 bpm ECG Measurements Heart Rate 88 AXES QRSd 86 QRS 66 QT 370 T 22 QTc 447 Conclusion Atrial fibrillation late r wave progression Abnormal ECG Electronically signed by : Mason Trimble, 06/05/2020 06:54:03
--- NOTE | 2020-06-04 18:30 | PC.NURSE ---
soap suds enema administered per ER MD order. pt up to bsc after enema administration. Pt has call light within reach
--- NOTE | 2020-06-04 18:49 | PC.NURSE ---
Pt up to bedside commode, but unable to have any significant bowel movement.
--- NOTE | 2020-06-04 19:06 | PC.NURSE ---
report given to benoit casas and kvngrn
[2020-06-04 19:42] LABS: Microscopic, Urine URINE MICROSCOPIC (MICROSCOPIC)
[2020-06-04 19:47] LABS: Appearance,Urine CLEAR (Clear); Bilirubin,Urine Negative (Negative); Blood, Urine 2+ (Negative); Color,Urine YELLOW (Yellow); Glucose,Urine (UA) Negative (Negative); Ketones,Urine TRACE (Negative); Leukocyte Esterase,Urine Negative (Negative); Nitrate,Urine Negative (Negative); Protein,Urine Negative (Negative); Specific Gravity, Urine 1.015 (1.005-1.030); Urobilinogen,Urine 0.2 EU/dl (0.2)
--- NOTE | 2020-06-04 19:51 | XR_ITS ---
PROCEDURE: XR KUB CLINICAL INDICATION: constipation COMPARISON: CT ABDPELW CT ABD PELVIS W/ CONTRAST from 03/18/2017 FINDINGS: There is a mild amount of retained colonic feces in the rectal region. Prostate seed implants are noted in there is a Metz catheter present. No evidence of intestinal obstruction. Lumbar scoliosis convex right with degenerative changes in the lumbar spine and hips and with mild vascular calcification. IMPRESSION: As above, no acute finding. Mild amount of retained colonic feces in the rectal region. Dictated by: Maynor Singh MD 06/05/2020 05:29 Maynor Singh MD in [place] 06/05/2020 05:29
[2020-06-04 19:57] LABS: RBC,Urine 20-50 #/hpf (0-3)
[2020-06-04 20:23] LABS: Basophils % 0.2 % (0.1-2.0); Eosinophils # 0.1 K/mm3 (0.0-0.4); Hematocrit 48.1 % (42.0-52.0); Hemoglobin 15.6 g/dL (14.1-18.0); Lymphocytes % 9.5 % (10-50); Mean Corpuscular HGB Conc 32.4 g/dL (31.8-35.4); Mean Corpuscular Hemoglobin 33.9 pg (27.0-31.2); Mean Corpuscular Volume 104.7 fl (80-94); Mean Platelet Volume 7.5 fl (7.4-10.4); Monocytes # 0.6 K/mm3 (0.1-1.0); Monocytes % 5.2 % (1.7-9.3); Neutrophils # 9.2 K/mm3 (1.8-7.8); Neutrophils % 84.2 % (37.0-80.0); Platelet Count 197 K/mm3 (142-424); Red Blood Count 4.59 M/mm3 (4.60-6.20); Red Cell Distribution Width 13.8 % (11.5-17.5); White Blood Count 10.9 K/mm3 (4.8-10.8)
[2020-06-04 20:33] LABS: Chloride 101 mmol/L (98-107); Sodium 138 mmol/L (136-145)
[2020-06-04 20:34] LABS: Potassium 4.3 mmoL/L (3.5-5.1)
[2020-06-04 20:36] LABS: Alanine Aminotransferase 29 U/L (12-78); Alkaline Phosphatase 81 U/L (38-126); Anion Gap 8.3 mEq/L (5-15); Aspartate Amino Transferase 42 U/L (17-59); Blood Urea Nitrogen 22 mg/dl (9-20); Carbon Dioxide 33 mmol/L (22.0-30.0); Creatinine Clearance Estimated 64 mL/min (50-200); Estimated Glomerular Filt Rate 131 ml/min (>60); GFR (African American) 158 ML/MIN (>60)
[2020-06-04 20:37] LABS: Albumin Level 4.4 g/dl (3.5-5.0); Albumin/Globulin Ratio 1.7 (1.1-1.8); Globulin 2.6 g/dL (1.3-3.2); Glucose 103 mg/dl (74-100)
--- NOTE | 2020-06-04 23:31 | PC.NURSE ---
patient to the floor at this time.
--- NOTE | 2020-06-04 23:48 | PC.NURSE ---
PT ARRIVED TO FLOOR FROM ED WITH STAFF AT [phone]
[2020-06-05 03:47] VITALS: BP 125/75; PULSE 84; RESP 16; TEMP 36.6; O2SAT 97
--- NOTE | 2020-06-05 05:59 | PC.NURSE ---
shift summary pts lung sounds are clear with maintained above 90% on room air with a rate ranging from 16-18. pts bowels started to move around 0500. stool is loose and large in amount. pt is alert and oriented X4.
[2020-06-05 06:38] VITALS: BMI 29.8
--- NOTE | 2020-06-05 07:14 | HMH.HPDC ---
General - General Admission date:: 06/04/20 Discharge date: 06/05/20 *Admission Date: 06/04/20 *Chief complaint: Constipation and urinary hesitancy *History of present illness: 79-year-old male with history of prostate cancer successfully treated with brachytherapy with last PSA being less than 0.1 presented to the emergency department with constipation and inability to urinate. Patient reports periodic constipation at home for which he will use as needed cathartics. Urinary retention has not been a problem for the patient. Patient had a fecal impaction which was manually reduced in the emergency department but even after enema was unable to have further bowel movement. Disimpaction of the bowel did not result in urine flow and a Metz catheter was inserted which produced 5 to 600 mL of urine. Patient was admitted and given magnesium citrate. [facility] History I have reviewed the patient's past medical history: Yes Medical History: Reports:: Cancer (prostate cancer), Coronary Artery Disease, Myocardial Infarction (triple bypass), Peripheral Artery Disease Denies:: Diabetes Mellitus Type 1, Diabetes Mellitus Type 2, Internal Pacemaker, MRSA, Seizures *Have you ever received a pneumonia vaccine?: Yes *Have you received a flu vaccine this season?: Yes Other Medical History: Reports: Arthritis, Other. Denies: Blood Transfusion Reaction Other Surgeries: Yes: Angiogram, Appendectomy, CABG, Cancer Surgery, Cardiac Catheterization, Hernia Repair, Other (open heart in 2002). No: Pacemaker Amputation: No Fractures: No - *Social History Last grade of school completed: 9th or 10th Smoking Status: Never smoker Tobacco Type: smokeless tobacco # Packs/Day (cigarettes): 1 Alcohol Intake: current Alcohol Intake Frequency:: a few times a month Substance Use Type: denies use *Occupational Status:: retired Housing: house *Travel in the last 8 weeks: None Family Hx:: Diabetes Review of Systems - Constitutional Denies anorexia, Denies body ache(s), Denies chills, Denies fever(s), Denies lack of energy, Denies malaise - *Cardiovascular Denies chest pain, Denies chest pain at rest - *Respiratory Denies change in phlegm color, Denies chest congestion - *Gastrointestinal Reports constipation, Reports cramping, Denies abdominal pain, Denies belching - *Genitourinary Reports difficulty urinating - *Musculoskeletal Denies abnormal walking, Denies joint pain, Denies decreased muscle mass - *Neurologic Reports abnormal walking Exam Vital signs and Labs for Last 24 Hours: Temp Pulse Resp BP Pulse Ox 97.9 F 84 16 125/75 97 06/05/20 03:47 06/05/20 03:47 06/05/20 03:47 06/05/20 03:47 06/05/20 03:47 Laboratory Results - last 24 hr 06/04/20 19:23: Urine Color Yellow, Urine Appearance Clear, Urine pH 8.0, Ur Specific [place] 1.015, Urine Protein Negative, Urine Glucose (UA) Negative, Urine Ketones Trace, Urine Blood 2+, Urine Nitrate Negative, Urine Bilirubin Negative, Urine Urobilinogen 0.2, Ur Leukocyte Esterase Negative, Urine RBC 20-50, Urine WBC 10-20 06/04/20 20:10: WBC 10.9 H, RBC 4.59 L, Hgb 15.6, Hct 48.1, MCV 104.7 H, MCH 33.9 H, MCHC 32.4, RDW 13.8, Plt Count 197, MPV 7.5, Neut % (Auto) 84.2 H, Lymph % (Auto) 9.5 L, [place] % (Auto) 5.2, Eos % (Auto) 1.0, Baso % (Auto) 0.2, Neut # (Auto) 9.2 H, Lymph # (Auto) 1.0, [place] # (Auto) 0.6, Eos # (Auto) 0.1, Baso # (Auto) 0.0 06/04/20 20:10: Sodium 138, Potassium 4.3, Chloride 101, Carbon Dioxide 33 H, Anion Gap 8.3, BUN 22 H, Creatinine 0.60 L, Estimated Creat Clear 64, Estimated GFR 131, Est GFR ( Amer) 158, Glucose 103 H, Calcium 10.0, Total Bilirubin 1.0, AST 42, ALT 29, Alkaline Phosphatase 81, Total Protein 7.0, Albumin 4.4, Globulin 2.6, Albumin/Globulin Ratio 1.7 I & O for Last 24 hours: Intake & Output 06/02/20 06/03/20 06/04/20 06/05/20 11:59 11:59 11:59 11:59 Intake Total 1000 / 1000 Output Total 800 / 800 Balance 200 / 200 Weight 190 lb Mi
[2020-06-05 07:28] VITALS: BP 176/109; PULSE 44; RESP 18; TEMP 36.6; O2SAT 93
--- NOTE | 2020-06-05 07:37 | P.CONPHA_ITS ---
[facility] Pharmacy VTE Monitoring - Patient Demographics Admission date: 06/04/20 Report Date: 06/05/20 Time: 07:37 Allergies/Adverse Reactions: Patient Allergies No Known Allergies Allergy (Verified 06/04/20 23:42) Height: 1.7 m Weight: 86.183 kg Patient Problems: Current Active Problems Fecal impaction in rectum (Acute) Constipation by outlet dysfunction (Acute) Urinary retention with incomplete bladder emptying (Acute) History of prostate cancer (Acute) - VTE Risk Labs: VTE Related Lab Results Hgb 15.6 g/dL (14.1-18.0) 06/04/20 20:10 Hct 48.1 % (42.0-52.0) 06/04/20 20:10 Plt Count 197 K/mm3 (142-424) 06/04/20 20:10 BUN 22 mg/dl (9-20) H 06/04/20 20:10 Creatinine 0.60 mg/dl (0.66-1.25) L 06/04/20 20:10 Estimated Creat Clear 64 mL/min (50-200) 06/04/20 20:10 VTE Score: 3 VTE Risk Level: Low Risk - Prophylaxis VTE Prophylaxis Ordered?: Yes Types of VTE Prophylaxis: TEDS Knee High Location of Applied Device: Bilateral Lower Extremeties - VTE Diagnosis Confirmed Treatment or plan recommended: Continue Current Treatment
--- NOTE | 2020-06-05 07:56 | PC.NURSE ---
PT MANUAL BP IS 132/76 WITH A HR OF 72 BPM. HE IS RESTING COMFORTABLY IN BED. WILL CONTINUE TO MONITOR.
[2020-06-05 07:57] VITALS: BP 132/76; PULSE 72
== END 2020-06-05 16:30 | disposition home or self-care (01) ==
LOC: ER 18:50 → 2ND 19:59
PROVIDERS: Admitting Provider Family Medicine; Emergency Provider Emergency Medicine; PCP Family Medicine; Visit Provider Family Medicine
DX: K59.02 Outlet dysfunction constipation (principal); R33.9 Retention of urine, unspecified; Z85.46 Personal history of malignant neoplasm of prostate; Z95.1 Presence of aortocoronary bypass graft; I25.2 Old myocardial infarction; Z79.01 Long term (current) use of anticoagulants; Z79.82 Long term (current) use of aspirin; Z79.899 Other long term (current) drug therapy
CPT/HCPCS: 74018; 80053; 81001; 85025; 87086; 93005; 96365; 96375; 99284; G0378; J2405; U0003

== ENCOUNTER → 2020-07-27 12:11 | Outpatient (CLI) | payer MEDICARE, SELFPAY ==
--- NOTE | 2020-07-27 | XR_ITS ---
PROCEDURE: XR HIP LT 2-3V W/PELVIS CLINICAL INDICATION: UNSPECIFIED FALL, INTIAL ENCOUNTER COMPARISON: CR [id number] HIP LT 2-3V W/PELVIS IF PERFOR from 06/04/2016 FINDINGS: Generalized osteopenia and degenerative changes of the left hip joint limit evaluation. No acute fractures within the limitations of the study. Moderate to severe degenerative changes of the hip joint with subchondral sclerosis, loss of joint space and osteophyte formation noted. Multiple brachytherapy clips noted projecting over the pubic symphysis. Degenerative changes of the visualized lumbar spine. Vascular calcification is noted IMPRESSION: Osteopenia and degenerative changes of the left hip joint. No acute fractures within the limitations of the study. Dictated by: Cleo Ram 07/27/2020 17:15 Cleo Ram in [facility] 07/27/2020 17:15
--- NOTE | 2020-07-27 | XR_ITS ---
PROCEDURE: XR HIP RT 2-3V W/PELVIS CLINICAL INDICATION: COMPARISON: CR [id number] HIP LT 2-3V W/PELVIS IF PERFOR from 06/04/2016 FINDINGS: Generalized osteopenia and degenerative changes of the right hip joint. No acute fractures or dislocations. No significant soft tissue abnormality. Brachytherapy clips noted. Vascular calcification is noted IMPRESSION: . no acute fractures or dislocations within the limitations of the study. Dictated by: Cleo Ram 07/27/2020 17:16 Cleo Ram in [facility] 07/27/2020 17:16
== END ==
PROVIDERS: PCP Family Medicine; Visit Provider Family Medicine
DX: M25.552 Pain in left hip (principal); M25.551 Pain in right hip; Y92.009 Unspecified place in unspecified non-institutional (private) residence as the place of occurrence of the external cause; W19.XXXA Unspecified fall, initial encounter
CPT/HCPCS: 73502

== ENCOUNTER → 2020-08-01 06:53 | Outpatient (CLI) | payer MEDICARE, SELFPAY ==
--- NOTE | 2020-08-01 07:17 | CT_ITS ---
PROCEDURE: CT LUMBAR SPINE WO CON CLINICAL HISTORY: LOW BACK PAIN, right HIP PAIN Fell last week COMPARISON: CT ABDPELW CT ABD PELVIS W/ CONTRAST from 03/18/2017 TECHNIQUE: Axial images obtained with sagittal and coronal reformats. All CT scans at the facility use one or more dose reduction, viz: automated exposure control, ma/kV adjustment per patient size (including targeted exams where dose is matched to indication, i.e. head), or iterative reconstruction technique. FINDINGS: There is normal alignment. No acute fracture or dislocation is evident. There is multilevel lumbar spondylosis. Mild lumbar scoliosis convex right. There is diffuse osteopenia. T10-T11: Degenerative disc disease with bulging disc eccentric to the right causing right-sided foraminal narrowing. Endplate hypertrophy. Facet hypertrophy with right lateral recess narrowing T12-L1: Degenerative disc disease with anterior bulging disc and endplate hypertrophic change. Mild bilateral foraminal narrowing. L1-L2: Mild chronic wedging of L1 not significantly changed. Anterior osteophytes. Bulging disc with facet and ligamentum hypertrophy with left lateral recess and foraminal narrowing. L2-L3: Prominent anterior osteophytes with bulging disc eccentric toward the left with facet and ligamentum hypertrophy and left-sided foraminal narrowing. L3-L4: Degenerative disc disease with endplate hypertrophic change. Prominent anterior endplate osteophytes. 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 Severe facet and ligamentum hypertrophy. Bilateral foraminal narrowing and bilateral lateral recess narrowing. 2 mm retrolisthesis of L3. L4-5: Degenerative disc disease with endplate hypertrophic change. Postsurgical changes are present from prior posterior laminectomy of L4. There is severe bilateral foraminal narrowing from the facet hypertrophic change. Prominent osteophyte is present of the facets on the right contributing to the foraminal narrowing and also causing lateral recess narrowing. There is bulging disc at this level with posterior longitudinal ligament ossification. L5-S1: Facet and ligamentum hypertrophy is present along with endplate osteophytes. There is retrolisthesis of L5 of approximately 4 mm. There is bilateral lateral recess and foraminal narrowing. 3.6 cm right renal cyst. Cholelithiasis. Colonic diverticulosis. Diffuse vascular calcification. IMPRESSION: Abnormal CT of the lumbar spine with multilevel lumbar spondylosis with bulging disc, endplate osteophytes, facet and ligamentum hypertrophy causing lateral recess and foraminal narrowing. Please see above for detailed description at each level. Incidental note is made of cholelithiasis and colonic diverticulosis and a right renal cyst. Dictated by: Maynor Singh MD 08/02/2020 08:21 Maynor Singh MD in [facility] 08/02/2020 08:21
== END ==
PROVIDERS: PCP Family Medicine; Visit Provider Family Medicine
DX: M54.5 Low back pain (principal); Y92.009 Unspecified place in unspecified non-institutional (private) residence as the place of occurrence of the external cause
CPT/HCPCS: 72131

== ENCOUNTER → 2020-08-08 09:35 | Outpatient (CLI) | payer MEDICARE, SELFPAY ==
--- NOTE | 2020-08-08 09:54 | MR_ITS ---
PROCEDURE: MR HIP RT WO/W CON CLINICAL INDICATION: S/P FALL WITH RT HIP PAIN Pt c/o rt hip pain s/p. Fell x2wks ago. COMPARISON: CR XR HIP RT 2-3V W/PELVIS from 07/27/2020 TECHNIQUE: Routine multiplanar multi echo sequences are performed without gadolinium enhancement. FINDINGS: No fracture or dislocation evident. There are mild osteoarthritic changes of both hips. There are small bilateral hip joint effusions. In the lateral acetabular region on the right there is a cystic area which measures 13 mm. This appears to demonstrate some peripheral contrast enhancement on the coronal post enhanced images. Just lateral to the acetabulum there is a septated fluid collection measuring 3 x 1.3 cm which may be contiguous with the interosseous collection... No evidence of avascular necrosis. There is slight increased subcutaneous T2 signal along the right lateral hip which could be related to a mild area of contusion. No large hematomas. IMPRESSION: 1. No acute fracture. 2. Osteoarthritic changes of the right hip with a suspected geode at the lateral acetabular region. 3. Septated fluid collection along the lateral aspect of the acetabulum 3 x 1 point 3 cm. This could represent a bursal collection. This however may be contiguous with the acetabular collection. One cannot exclude the possibility of an abscess. Suggest short-term follow-up to confirm stability. Also suggest correlation with clinical parameters. CT of the right hip with contrast may also provide further evaluation and may demonstrate better bony detail. Dictated by: Maynor Singh MD 08/09/2020 15:05 Maynor Singh MD in [facility] 08/09/2020 15:05
[2020-08-08 09:59] LABS: Blood Urea Nitrogen 27 mg/dl (9-20); Estimated Glomerular Filt Rate 82 ml/min (>60); GFR (African American) 99 ML/MIN (>60)
== END ==
PROVIDERS: PCP Family Medicine; Visit Provider Family Medicine
DX: M25.551 Pain in right hip (principal); W19.XXXD Unspecified fall, subsequent encounter; Y92.009 Unspecified place in unspecified non-institutional (private) residence as the place of occurrence of the external cause
CPT/HCPCS: 36415; 73723; 82565; 84520; A9576

== ENCOUNTER → 2020-08-15 14:48 | Outpatient (CLI) | payer MEDICARE, SELFPAY ==
--- NOTE | 2020-08-15 14:53 | CT_ITS ---
PROCEDURE: CT HIP RT WO CON CLINICAL HISTORY: RT HIP PAIN, UNSPECIFIED FALL IN UNSPECIFIED PLACE right hip pain following injury COMPARISON: CT ABDPELW CT ABD PELVIS W/ CONTRAST from 03/18/2017 MR MR HIP RT WO/W CON from 08/08/2020 TECHNIQUE: Axial images obtained with sagittal and coronal reformats. All CT scans at the facility use one or more dose reduction, viz: automated exposure control, ma/kV adjustment per patient size (including targeted exams where dose is matched to indication, i.e. head), or iterative reconstruction technique. FINDINGS: There is generalized osteopenia. Mild osteoarthritic changes are present involving the right hip. No acute fracture or dislocation is apparent. Chondrocalcinosis involves the right hip labrum. A lucent lesion is present involving the acetabular roof laterally corresponding to the cystic area noted on MRI. This area measures approximately 9 mm consistent with a geode. There is diffuse vascular calcification. Small area of I so density is present lateral to the super acetabular region corresponding to the soft tissue cystic collection on the MRI. This area measures approximately 10 mm in this contiguous with the lytic lesion within the super acetabular area. Prostatic seed implants are noted. There is colonic diverticulosis IMPRESSION: 1. No acute fracture. 2. Osteoarthritic changes of the right hip with chondrocalcinosis. 3. Lucent lesion in the right acetabular roof laterally is noted and may be due to a subchondral cyst/geode. There is a small fluid collection in the super acetabular region on the right which is contiguous with the subchondral cyst. This fluid collection could be due to a bursal collection or synovial cyst. One cannot exclude the possibility of infection/abscess within the bone and soft tissues. Please correlate with clinical parameters. Consider follow-up to confirm stability. Dictated by: Maynor Singh MD 08/15/2020 15:47 Maynor Singh MD in [facility] 08/15/2020 15:47
== END ==
PROVIDERS: PCP Family Medicine; Visit Provider Family Medicine
DX: M25.551 Pain in right hip (principal); W19.XXXD Unspecified fall, subsequent encounter; Y92.009 Unspecified place in unspecified non-institutional (private) residence as the place of occurrence of the external cause
CPT/HCPCS: 73700

== ENCOUNTER → 2020-09-02 07:55 | Outpatient (CLI) | payer MEDICARE, SELFPAY ==
--- NOTE | 2020-09-02 07:59 | MR_ITS ---
PROCEDURE INFORMATION: Exam: MR Lumbar Spine Without and With Contrast Exam date and time: 09/02/2020 7:59 AM Age: 80 years old Clinical indication: Right; Sciatica and other: RT hip and leg pain; Patient HX: PT C/O continued RT leg pain since fall July 27, 2020; Additional info: Fall with continued RT hip pain TECHNIQUE: Imaging protocol: Multiplanar magnetic resonance images of the lumbar spine without and with intravenous contrast. 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 Spinal cord: Normal signal. No cord compression. T12-L1: There is degenerative disc disease including disc space narrowing and dessication. There is a moderate disc/osteophyte complex that flattens the ventral thecal sac. There is severe bilateral neural foraminal narrowing. There is facet arthropathy and ligamentum flavum hypertrophy. There is mild spinal canal stenosis. L1-L2: There is disc space narrowing and desiccation. There are moderate degenerative end plate changes at this level. There is a moderate disc/osteophyte complex that flattens the ventral thecal sac. There is severe left-sided neuroforaminal narrowing. There is moderate right-sided neuroforaminal narrowing. There is facet arthropathy and ligamentum flavum hypertrophy. There is moderate/severe spinal canal stenosis. L2-L3: There is degenerative disc disease including disc space narrowing and dessication. There is a moderate disc/osteophyte complex that flattens the ventral thecal sac. There is moderate/severe bilateral neural foraminal narrowing. There is facet arthropathy and ligamentum flavum hypertrophy. There is moderate/severe spinal canal stenosis. L3-L4: There is disc space narrowing and desiccation. There are moderate degenerative end plate changes at this level. There is a moderate disc/osteophyte complex that flattens the ventral thecal sac. There is a small central disc protrusion. There is severe bilateral neural foraminal narrowing. There is facet arthropathy and ligamentum flavum hypertrophy. There is moderate spinal canal stenosis. There has been a posterior decompression at this level. L4-L5: There is disc space narrowing and desiccation. There are moderate degenerative end plate changes at this level. There is a moderate disc/osteophyte complex that flattens the ventral thecal sac. There is severe bilateral neural foraminal narrowing. There is facet arthropathy and ligamentum flavum hypertrophy. There has been a posterior decompression at this level. L5-S1: There is disc space narrowing and desiccation. There are moderate degenerative end plate changes at this level. There is severe bilateral neural foraminal narrowing. Soft tissues: Unremarkable. Kidneys and ureters: There are high signal lesions in the right kidney, possibly cysts, but not fully characterized on this MRI exam. 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 IMPRESSION: 1. 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 2. Advanced multilevel degenerative changes as described above. There is severe multilevel neural foraminal stenosis. There is moderate/severe multilevel spinal canal stenosis. 3. Status post posterior decompression at L3/4 and L4/5 since prior study. 4. No post traumatic findings identified.
== END ==
PROVIDERS: PCP Family Medicine; Visit Provider Family Medicine
DX: M54.5 Low back pain; M25.551 Pain in right hip; M79.604 Pain in right leg; W19.XXXD Unspecified fall, subsequent encounter
CPT/HCPCS: 72158; 76376

== ENCOUNTER → 2020-09-14 10:33 | Outpatient (CLI) | payer MEDICARE, SELFPAY ==
--- NOTE | 2020-09-14 10:41 | XR_ITS ---
PROCEDURE: XR LUMBAR SPINE BENDING ONLY CLINICAL INDICATION: SPINAL STENOSIS OF LUMBAR REGION COMPARISON: CR [id number] LUMBAR SPINE 5 VIEWS from 06/04/2016 FINDINGS: Neutral, flexion, and extension views are obtained of the lumbar spine. There is severe degenerative changes of the lumbar spine with osteosclerosis and osteophyte formation at L3-L4 and. Mild wedging is present at L1 not significantly changed. No significant subluxation present in flexion or extension. There is mild retrolisthesis of L2 on L3 of approximately 7 mm and mild retrolisthesis of L3 on L4 of approximately 4 mm which does not appear to significantly change in flexion or extension. IMPRESSION: Severe lumbar spondylosis. No abnormal subluxation in flexion or extension. Dictated by: Maynor Singh MD 09/14/2020 11:33 Maynor Singh MD in [facility] 09/14/2020 11:33
== END ==
PROVIDERS: PCP Family Medicine; Visit Provider Neurological Surgery
DX: M48.062 Spinal stenosis, lumbar region with neurogenic claudication (principal)
CPT/HCPCS: 72120

== ENCOUNTER 2021-04-27 09:00 | Outpatient (RCR) | payer MEDICARE, SELFPAY | END 2021-04-27 09:05 | disposition home or self-care (01) | LOC: PT 09:00 | PROVIDERS: PCP Family Medicine; Visit Provider Neurological Surgery | DX: M54.50 Low back pain, unspecified (principal); Z98.1 Arthrodesis status | CPT/HCPCS: 97014; 97110; 97163; 97164; 97530; G0283 ==

== ENCOUNTER → 2021-06-08 13:34 | Outpatient (CLI) | payer MEDICARE, SELFPAY ==
--- NOTE | 2021-06-08 13:51 | CT_ITS ---
FINAL REPORT CLINICAL HISTORY: LOW BACK PAIN, SX SEPTEMBER 2020 COMPARISON: August 01, 2020 FINDINGS: Axial imaging of the lumbar spine was obtained without contrast. Sagittal and coronal reformatted images were also obtained and reviewed.This study was performed with techniques to keep radiation doses as low as reasonably achievable (ALARA). Individualized dose reduction techniques using automated exposure control or adjustment of mA and/or kV according to the patient's size were employed. There has been interval fusion of L4-S1. Again noted is diffuse degenerative changes, disc space is narrowing, osteophytes and multilevel facet arthropathy There is no fracture. The vertebral alignment is normal. There is dextroscoliosis. T12-L1: There is an annular disc bulge with facet arthropathy and vertebral osteophytes. There is mild right and moderate left neural foraminal narrowing. L1-2: There is an annular disc bulge with facet arthropathy and vertebral osteophytes. There is moderate right and severe left neural foraminal narrowing. There is mild central canal stenosis with AP diameter of the thecal sac of 8 mm. L2-3: There is an annular disc bulge with facet arthropathy and vertebral osteophytes. There is moderate right and severe left neural foraminal narrowing. There is moderate central canal stenosis with an AP diameter of the thecal sac of 6 mm. L3-4: There is an annular disc bulge with facet arthropathy and vertebral osteophytes. There is severe bilateral neural foraminal narrowing. L4-5: There has been interval fusion with streak artifact obscuring some detail. There is severe right and moderate left neural foraminal narrowing. L5-S1: There is an annular disc bulge with facet arthropathy and vertebral osteophytes. There is severe bilateral neural foraminal narrowing. IMPRESSION: Interval fusion of L4-S1. Persistent, multilevel severe degenerative disc disease and spondylosis, appears similar to the prior. Reviewed, Interpreted and Dictated by Damir Almaguer III, MD Transcribed by Sarah Hernandez Authenticated by Damir Almaguer III, MD on 06/08/2021 03:28:35 PM [facility]
--- NOTE | 2021-06-08 14:20 | MR_ITS ---
FINAL REPORT CLINICAL HISTORY: LOW BACK PAIN, HX LUMBAR SURGERY 09-29-20. LBP. PAIN DOWN THIGHS TO KNEE. 15ML PROHANCE GIVEN. PRIOR MR 09-02-20 COMPARISON: September 02, 2020 FINDINGS: Multiplanar MR imaging of the lumbar spine was performed without and with contrast. On the sagittal T2-weighted images, disc degeneration is seen throughout. There has been fusion of L4-S1. There are endplate changes at multiple levels. There are multiple Schmorl's nodes. Dextroscoliosis is noted. There is right lateral subluxation of L3 on L4. There is no evidence of fracture. The conus has an unremarkable appearance. T11-T12: There is an annular bulge, facet arthropathy and vertebral osteophytes. There is a right foraminal disc protrusion. There is severe bilateral neural foraminal narrowing. T12-L1: There is an annular bulge, facet arthropathy and vertebral osteophytes. There is mild bilateral neural foraminal narrowing. L1-2: There is an annular bulge, facet arthropathy and vertebral osteophytes. There is mild right and severe left neural foraminal narrowing. There is mild central canal stenosis with an AP thecal sac diameter of 7 mm. L2-3: There is an annular bulge, facet arthropathy and vertebral osteophytes. There is mild right and severe left neural foraminal narrowing. There is moderate central canal stenosis with an AP thecal sac diameter of 5 mm. L3-4: There is an annular bulge, facet arthropathy and vertebral osteophytes. There is severe bilateral neural foraminal narrowing. L4-5: There has been fusion at this level. There is an annular bulge, facet arthropathy and vertebral osteophytes. There is severe right and moderate left neural foraminal narrowing. L5-S1: There has been fusion at this level. There is an annular bulge, facet arthropathy and vertebral osteophytes. There is severe bilateral neural foraminal narrowing. There is spurring of the SI joints. No abnormal contrast enhancement is identified. IMPRESSION: Fusion of L4-S1. Right foraminal disc protrusion at T11-T12. Multilevel degenerative disc disease with areas of neural foraminal narrowing and central canal stenosis. Reviewed, Interpreted and Dictated by Damir Almaguer III, MD Transcribed by Thai Craig Authenticated by Damir Almaguer III, MD on 06/08/2021 04:43:[address] [facility]
[2021-06-08 14:57] LABS: Blood Urea Nitrogen 20 mg/dl (9-20); Estimated Glomerular Filt Rate 93 ml/min (>60); GFR (African American) 113 ML/MIN (>60)
== END ==
PROVIDERS: PCP Family Medicine; Visit Provider Neurological Surgery
DX: M54.50 Low back pain, unspecified (principal)
CPT/HCPCS: 36415; 72131; 72158; 76376; 82565; 84520; A9576

== ENCOUNTER 2023-04-29 09:25 | Outpatient (CLI) | payer MEDICARE, SELFPAY | END 2023-04-29 23:59 | LOC: LAB 09:27 | PROVIDERS: PCP Family Medicine; Visit Provider Family Medicine | DX: L98.9 Disorder of the skin and subcutaneous tissue, unspecified (principal) ==